=== PATIENT | male | born 1980 ===

== ENCOUNTER 2016-06-01 16:12 | Emergency (ER) | payer SELFPAY ==
[2016-06-01] MEDS ORDERED: KETOROLAC TROMETHAMINE 60 MG/2 ML VIAL ONE (17:08)
== END 2016-06-01 17:24 | disposition home or self-care (01) ==
LOC: ED 16:12
DX: S39.012A Strain of muscle, fascia and tendon of lower back, initial encounter (principal); F17.200 Nicotine dependence, unspecified, uncomplicated; X50.1XXA Overexertion from prolonged static or awkward postures, initial encounter; Y93.E2 Activity, laundry
CPT/HCPCS: 99282; 96372; 99283; J1885